=== PATIENT | male | born 1995 | race Caucasian/White ===

== ENCOUNTER 2017-04-17 14:31 | Inpatient (IN) ==
[2017-04-17] MEDS ORDERED: *HR* FentaNYL (PF) 100 MCG/2 ML VIAL IVP ONE (15:03)
[2017-04-17] MEDS ORDERED: *HR* Etomidate 20 MG/10 ML AMPUL IVP ONE (15:03)
[2017-04-17] MEDS ORDERED: 0.9 % Sodium Chloride 1,000 ML ONE (15:09)
--- NOTE | 2017-04-17 15:55 | Emergency Department Note ---
START Narrative - START START: I examined this patient and my medical decision-making was reviewed with the Resident Physician. I agree with the documented findings, disposition and treatment plan as described except to the extent set forth below. 21-year-old male presents emergency room for left sided spontaneous pneumothorax. Patient was sent from urgent care. Happened yesterday at 3 AM while at work at [employer]. Denies trauma. States he was just doing his normal activity when all of a sudden he developed left-sided chest pain. At the urgent care they did a plain film chest x-ray which showed a large pneumothorax with a slight shift of the trachea. Patient presents RER with this. We did a procedural sedation and placed a left sided chest tube successfully. This is done by the resident under my supervision. Patient is doing well. Follow-up chest x-ray showed good aeration of the left lung now. Patient will need to be admitted. Critical care time spent was 35 minutes including medical management of this left sided pneumothorax.
--- NOTE | 2017-04-17 16:05 | Emergency Department Note ---
Disposition Clinical Impression: Pneumothorax on left, Spontaneous pneumothorax, Pleuritic chest pain Disposition: Admitted As Inpatient Condition: Fair Time of Disposition: 23:20 SOB HPI - General Chief Complaint: ED Shortness of Breath/Dyspnea Stated Complaint: left sided pneumo Time Seen by Provider: 04/17/17 14:33 Source: patient Limitations: no limitations Nursing Notes Reviewed: Yes Vital Signs Reviewed: Yes - History of Present Illness 21-year-old male presents with diagnoses of pneumothorax left side 50% on a checks x-ray at urgent care. Patient states his symptoms started yesterday morning with acute onset of left lower lung area pain with inspiration. Patient states he started coughing later on that evening as his pain worsen. Patient has a cochlear implant on the left side of his head - Related Data Home Medications Medication Instructions Recorded Confirmed Loratadine [Claritin] 10 mg PO DAILY PRN 04/17/17 04/17/17 Allergies Allergy/AdvReac Type Severity Reaction Status Date / Time No Known Allergies Allergy Verified 04/17/17 16:11 All systems ED: reviewed and negative except as stated. Review of Systems: As Per HPI Constitutional: Denies: fever, chills, weakness Eyes: Denies: vision change ENT ED: Denies: congestion Cardiovascular: Reports: chest pain. Denies: palpitations Respiratory: Reports: cough, dyspnea. Denies: wheezes Gastrointestinal: Denies: abdominal pain, nausea, vomiting, diarrhea Genitourinary: Denies: frequency Musculoskeletal: Reports: back pain. Denies: neck pain Integumentary: Denies: rash Neurological: Denies: headache Psychiatric: Denies: anxiety Endocrine: Denies: fatigue Past Medical History - Past Medical History Attestation: Yes The following information was validated with the patient. Source: patient Medical history: Reports: non-contributory Psychiatric history: Reports: no psych history - Social History Smoking Status: Never smoker Smokeless Tobacco Status: No Alcohol use: Reports: none Drug use: Reports: none Physical Exam Vital Signs Temperature 98 F 04/17/17 14:33 Pulse Rate 87 04/17/17 14:33 Respiratory Rate 18 04/17/17 14:33 Blood Pressure 136/83 04/17/17 14:33 O2 Sat by Pulse Oximetry 99 04/17/17 14:33 Temperature 98.6 F 04/17/17 19:22 Pulse Rate 71 04/17/17 19:22 Respiratory Rate 16 04/17/17 19:22 Blood Pressure 131/72 04/17/17 19:22 O2 Sat by Pulse Oximetry 100 04/17/17 19:22 Oxygen Delivery Oxygen Delivery [1545] Room Air Oxygen Delivery [1540] Room Air Oxygen Delivery [1535] Room Air Oxygen Delivery [1530] Room Air Oxygen Delivery [1525] Room Air Oxygen Delivery [1520] Room Air Oxygen Delivery Room Air Patient 21-year-old male who is alert and oriented 3 and in no acute distress. Patient has normal vital signs and is afebrile. Patient is sitting up and looks very well. No increase work of breathing. Patient does have discomfort when taking a deep breath. - General Limitations: no limitations General appearance: alert - Head Head exam: atraumatic, normocephalic, normal inspection - Eye Eye exam: Present: normal appearance, PERRL, EOMI - ENT ENT exam: normal exam, normal oropharynx, mucous membranes moist - Neck Neck exam: Present: normal inspection, full ROM, trachea midline - Chest Chest inspection: Present: normal inspection, symmetric chest wall rise - Respiratory Respiratory exam: Present: other (Decreased lung sounds on the left) - Cardiovascular Cardiovascular exam: Present: regular rate, normal rhythm, normal heart sounds Course Vital Signs Temperature 98 F 04/17/17 14:33 Pulse Rate 87 04/17/17 14:33 Respiratory Rate 18 04/17/17 14:33 Blood Pressure 136/83 04/17/17 14:33 O2 Sat by Pulse Oximetry 99 04/17/17 14:33 Temperature 98.6 F 04/17/17 19:22 Pulse Rate 71 04/17/17 19:22 Respiratory Rate 16 04/17/17 19:22 Blood Pressure 131/72 04/17/17 19:22 O2 Sat by Pulse Oximetry 100 04/17/17 19:22 Oxygen Delivery Oxygen Delivery [1545] Room Air Oxygen Delivery [1540] Room Air Oxygen Delivery [1535] Room Air Oxygen Delivery [1530] Room Air Oxygen Delivery [1525] Room Air Oxygen Delivery [1520] Room Air Oxygen Delivery Room Air Procedures - Chest Tube Chest Tube 1 Chest Tube Location: left Size of Tube (cm): 28 Chest Tube Prep: betadine prep, sterile drapes applied Local Anesthetic: lidocaine 1% Amount of Anesthesia Used (mL): 5 Incision Made With: #10 blade Post Procedure: sutured to skin, sterile dressing applied Tube Drainage: none Post Procedure CXR?: Yes Patient Tolerated Procedure: Yes Shortness of Breath/Dyspnea - [facility] Narrative Medical decision making narrative: Pneumothorax greater than 50% left chest. 28-Arabic chest tube placed just anterior to the midaxillary line at fifth intercostal space. Patient tolerated procedure well. Post chest x-ray shows tube in correct position with small rigid residual amount of air. Patient was appropriately managed with pain with fentanyl 100 g and is doing well. Patient was accepted for admission by Dr. Guidry hospitalist. - Lab Data Lab results reviewed: Yes I reviewed the patient's lab results. - Radiology Data Radiology results reviewed: Yes I reviewed the patient's radiology results. Chest X-Ray 04/17/17 15:45 IMPRESSION: Tiny residual left apical pneumothorax after thoracostomy tube placement. D/ / Jose Roberto Ross / Jose Roberto Ross Interpreting Provider: Jose Roberto Ross
[2017-04-17] MEDS ORDERED: ceFAZolin 1,000 MG in D5% in Water (Mini-Bag+) 100 ML IVPB ONE (16:15)
[2017-04-17] MEDS ORDERED: Naloxone 0.4 MG/ML INJ IVP PRN (17:25)
[2017-04-17] MEDS ORDERED: Acetaminophen 325 MG TABLET PO PRN (17:25)
[2017-04-17] MEDS ORDERED: Mag Hydrox/Al Hydrox/Simeth 30 ML UDC PO PRN (17:25)
[2017-04-17] MEDS ORDERED: Ondansetron 4 MG/2 ML VIAL IVP PRN (17:25)
[2017-04-17] MEDS ORDERED: Loratadine 10 MG TABLET PO PRN (17:26)
--- NOTE | 2017-04-17 18:15 | Internal Med History&Physical ---
Date of Encounter: 04/17/17 Time of Encounter: 17:50 Assessment and Plan (1) Spontaneous tension pneumothorax Current visit: Yes Status: Acute Pt presented to urgent care and ED with spontaneous PTX. There was some slight shift of trachea per ED note. Chest tube placed in ED Keep chest tube to suction Oxygen Pain control Consult to CTS for management. Repeat CXR in AM (2) Deaf Current visit: Yes Status: Chronic Has bilateral cochear implants. Qualifiers: Laterality: bilateral Qualified Code(s): H91.93 - Unspecified hearing loss , bilateral (3) DVT prophylaxis Current visit: Yes Status: Acute Internal Medicine - H&P: HPI Chief complaint: L chest pain Admitted From: Emergency Dept Plans for Post Hospital Care: Home History of present illness: Mr. Major is a 21 year old male with hx of bilateral cochlear implants presented to ED with spontaneous L PTX. Pt works for [employer] and was working during the day yesterday. He developed L side chest pain but continued to work. He went home and today had continued pain so did not go to work. He presented to urgent care and was found to have L PTX and sent to ED. In ED chest tube was placed and he was admitted. Pt denies prior hx of PTX. He is adopted and does not know his family hx. He is a nonsmoker. 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 Currently he is resting in bed. He says his pain is tolerable except when moving. No dyspnea. Girlfriend and her family are at bedside. Past Med Surg Social Fam HX - Past Medical History Source: patient Medical history: no medical history Psychiatric history: no psych history - Past Surgical History Surgical History: other (Bilateral cochlear implants) - Social History Smoking Status: Never smoker Smokeless Tobacco Status: No Alcohol use: none Drug use: none Occupational status: employed Current living situation: Home - Independent Activity Level: Independent ambulation Recent Out of Country Travel Within the Last 8 Weeks: No Exposure or Possible Exposure to Illness During Travel: No - Additional Family History Additional family history: Pt is adopted and does not know any of his biological family history. Internal Medicine - H&P: Meds Loratadine [Claritin] 10 mg PO DAILY PRN 04/17/17 [History] 3 Allergy/AdvReac Type Severity Reaction Status Date / Time No Known Allergies Allergy Verified 04/17/17 16:11 All Systems PM: A 10-system review of systems was performed and is negative for pertinent findings except as documented above in the HPI. - Constitutional Constitutional: fatigue, no malaise, no weight loss - EENT Eyes: no dry eye, no loss of vision Ears: decreased hearing Additional comments: Has bilateral cochlear implants Nose, mouth and throat: nasal congestion, nasal discharge, post-nasal drip, no dry mouth, no mouth pain Additional comments: Has seasonal allergies - Cardiovascular Cardiovascular ROS IM: chest pain, dyspnea, no lightheadedness, no palpitations - Respiratory Respiratory: dyspnea, dyspnea on exertion, pain on inspiration - Gastrointestinal Gastrointestinal: no constipation, no diarrhea, no hematemesis, no melena, no nausea - Genitourinary Genitourinary ROS male: no dysuria, no nocturia - Musculoskeletal Musculoskeletal ROS IM: no arthralgias, no joint swelling - Integumentary Integumentary IM: no erythema, no new lesions, no rash - Neurological Neurological ROS: no confusion, no dizziness, no numbness - Psychiatric Psychiatric: no abnormal sleep pattern, no hallucinations - Endocrine Endocrine IM: no excessive sweating, no flushing - Hematologic/Lymphatic Hematologic/Lymphatic: no easy bleeding - Allergic/Immunologic Allergic/Immunologic: no itchy eyes, no wheezing - Constitutional Vitals: Temp Pulse Resp BP Pulse Ox 98 F 83 16 145/85 100 04/17/17 14:33 04/17/17 17:01 04/17/17 17:01 04/17/17 17:01 04/17/17 17:01 General appearance: Present: mild distress, A&O X 3, pleasant, answers questions appropriately - Head Head exam: Present: atraumatic, normocephalic - Eye Eye exam: Present: EOMI, conjuntiva pink Pupils: Present: PERRL - ENT ENT exam: Present: mucous membranes moist Additional comments: Bilateral cochlear implants - Neck Neck exam general surgery: Absent: lymphadenopathy, thyromegaly - Respiratory Respiratory exam: Present: decreased breath sounds. Absent: rales, rhonchi, wheezes - Cardiovascular Cardiovascular exam: Present: RRR. Absent: systolic murmur, tachycardia - GI/Abdominal GI/Abdominal exam: Present: normal bowel sounds, soft. Absent: tenderness - Extremities Exam Extremities exam: Present: full ROM, warm. Absent: pedal edema, tenderness - Neurological Exam Neurological exam: Present: alert, oriented X3 Additional comments: Decreased hearing - Psychiatric Psychiatric exam: Present: normal affect, normal mood - Skin Skin exam: Present: warm. Absent: rash
[2017-04-17] MEDS: *HR* HYDROmorphone (PF) 1 MG/ML SYRINGE IVP PRN (18:47)
[2017-04-17] MEDS ORDERED: ceFAZolin 1,000 MG in Water for inj. (sterile) 10 ML IVP ONE (20:00)
[2017-04-17] MEDS ORDERED: *HR* Promethazine 25 MG/ML VIAL IVP PRN (20:18)
[2017-04-17] MEDS: *HR* OxyCODONE Immed Rel 5 MG TABLET PO PRN (20:50)
[2017-04-18] MEDS ORDERED: *HR* Heparin 5,000 UNIT/ML VIAL SQ SCH
[2017-04-18 05:04] LABS: Basophils % 0.2 %; Hematocrit 39.7 % (37.5-50.1); Hemoglobin 13.3 g/dL (12.9-16.9); Immature Granulocytes % 0.4 % (0-4); Lymphocytes # 0.7 K/mcL (0.6-4.6); Lymphocytes % 4.9 %; Mean Corpuscular HGB Conc 33.5 g/dL (31.6-35.5); Mean Corpuscular Hemoglobin 29.1 pg (28.0-33.3); Mean Corpuscular Volume 86.9 fL (83.0-100.0); Mean Platelet Volume 11.6 fL (9.4-12.4); Monocytes # 0.8 K/mcL (0.0-1.3); Monocytes % 5.8 %; Neutrophils # 12.4 K/mcL (1.6-8.9); Platelet Count 251 K/mcL (140-400); Red Blood Count 4.57 M/mcL (4.19-5.50); Red Cell Distribution Width 13.3 % (11.5-14.5); Segmented Neutrophils % 88.7 %
[2017-04-18 05:28] LABS: BUN/Creatinine Ratio 14 (6-26); Blood Urea Nitrogen 10 mg/dL (8-26); Calcium 9.2 mg/dL (8.6-10.8); Carbon Dioxide 25 mEq/L (19-29); Chloride 103 mEq/L (98-109); Glucose 105 mg/dL (70-99); Magnesium 1.6 mg/dL (1.7-2.2); Osmolality,Calculated 285 (280-300); Potassium 4.2 mEq/L (3.5-4.5); Sodium 138 mEq/L (136-145); eGFR For African Americans > 60 (> 60); eGFR For Non-African Americans > 60 (> 60)
--- NOTE | 2017-04-18 08:37 | Cardiothoracic Consult Note ---
Date of Encounter: 04/18/17 Time of Encounter: 08:26 Assessment and Plan (1) Spontaneous pneumothorax Current Visit: Yes Status: Acute The patient is a 21-year-old otherwise healthy man with an initial episode of a left spontaneous pneumothorax. The chest tube was inserted with near complete resolution of the pneumothorax. Currently the chest tube has no air leak and she remain on suction for at least 1-2 more days prior to being placed to waterseal. If the chest x-ray continues to show resolution of the pneumothorax on waterseal, the chest tube may be removed. The assessment and plan as outlined above was discussed with the patient and/or family members who expressed understanding and agreement. All questions were answered. - History of Present Illness Consult date: 04/17/17 Requesting physician: Neil Guidry Consult reason: Chest tube management Chief complaint: Left spontaneous pneumothorax History of present illness: Mr. Major is a 21 year old otherwise healthy man who experienced sudden onset of left-sided chest pain while at work. The patient had a previous episode of pain in January 2017; however, did not seek medical attention at that time. At that time he thought he had "pulled muscle". With this episode of pain the patient decided to be evaluated [facility] a chest x-ray showed a left pneumothorax. He underwent chest tube insertion in the emergency department with resolution of the pneumothorax. Past Med Surg Social Fam HX - Past Medical History Medical history: non-contributory Psychiatric history: no psych history - Past Surgical History Surgical History: other (Bilateral cochlear implants) - Social History Smoking Status: Never smoker Smokeless Tobacco Status: No Alcohol use: none Drug use: none Occupational status: employed Current living situation: Home - Independent Activity Level: Independent ambulation, Very active Recent Out of Country Travel Within the Last 8 Weeks: No Exposure or Possible Exposure to Illness During Travel: No Medications and Allergies Loratadine [Claritin] 10 mg PO DAILY PRN 04/17/17 [History] 3 Allergy/AdvReac Type Severity Reaction Status Date / Time No Known Allergies Allergy Verified 04/17/17 16:11 All Systems Review: A 10-system review of systems was performed and is negative for pertinent findings except as documented above in the HPI. Physical Examination Vital Signs, Last 4 Hours Temp Pulse Resp BP Pulse Ox 04/18/17 07:26 98.6 F 89 16 148/80 98 General: Conversant, No Apparent Distress HEENT: Atraumatic, Normocephaly, Trachea midline Cardiac: Reg Rate and Rhythm, Normal S1 and S2, No Murmur Lungs: Normal Breath Sounds, No Wheeze, Rales, Rhonchi Neuro: Alert and responsive, No focal deficits noted, Cranial nerves intact, Motor nerves intact, Sensory nerves intact Vascular: Normal capillary refill Abdomen: Soft, Non-tender Musculoskeletal: Other (Left chest tube in place and functioning properly.) Extremities: No Clubbing, No Cyanosis, No Edema, Normal Pulses Results 04/18/17 04:34 04/18/17 04:34 Lab Results, Last 24 hours 04/18/17 04/18/17 04:34 04:34 WBC 14.0 H Hgb 13.3 Hct 39.7 Plt Count 251 Sodium 138 Potassium 4.2 Chloride 103 Carbon Dioxide 25 BUN 10 Creatinine 0.74 Glucose 105 H Calcium 9.2 Magnesium 1.6 L - Imaging Chest Xray: image reviewed (Small left apical pneumothorax.) Consult Discharge Plan - Plan Referrals: NONE,PCP [Primary Care Provider] -
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
[2017-04-18] MEDS: *HR* HYDROmorphone (PF) 1 MG/ML SYRINGE IVP PRN ×3 (11:10→23:18)
[2017-04-18] MEDS: Fluticasone Propionate Nasal 50 MCG/SPRAY BOTTLE NS SCH (18:37)
[2017-04-18] MEDS: *HR* OxyCODONE Immed Rel 5 MG TABLET PO PRN (19:58)
[2017-04-19] MEDS: *HR* OxyCODONE Immed Rel 5 MG TABLET PO PRN ×3 (04:26→19:15)
[2017-04-19 05:30] LABS: Basophils % 0.4 %; Eosinophils # 0.2 K/mcL (0.0-0.6); Eosinophils % 2.5 %; Hematocrit 38.9 % (37.5-50.1); Hemoglobin 13.2 g/dL (12.9-16.9); Immature Granulocytes % 0.2 % (0-4); Lymphocytes # 1.6 K/mcL (0.6-4.6); Lymphocytes % 17.5 %; Mean Corpuscular HGB Conc 33.9 g/dL (31.6-35.5); Mean Corpuscular Hemoglobin 29.5 pg (28.0-33.3); Mean Platelet Volume 11.4 fL (9.4-12.4); Monocytes % 11.5 %; Platelet Count 239 K/mcL (140-400); Red Blood Count 4.47 M/mcL (4.19-5.50); Red Cell Distribution Width 13.3 % (11.5-14.5); Segmented Neutrophils % 67.9 %
[2017-04-19 05:44] LABS: Alanine Aminotransferase 10 Units/L (0-55); Albumin 3.7 g/dL (3.5-5.0); Albumin/Globulin Ratio 1.2 (1.1-2.2); Alkaline Phosphatase 74 Units/L (38-126); Aspartate Amino Transferase 14 Units/L (5-34); BUN/Creatinine Ratio 12 (6-26); Bilirubin,Total 0.7 mg/dL (0.2-1.2); Blood Urea Nitrogen 9 mg/dL (8-26); Calcium 9.2 mg/dL (8.6-10.8); Carbon Dioxide 28 mEq/L (19-29); Chloride 103 mEq/L (98-109); Globulin 3.2 g/dL (2.4-3.5); Glucose 103 mg/dL (70-99); Osmolality,Calculated 287 (280-300); Potassium 3.7 mEq/L (3.5-4.5); Sodium 139 mEq/L (136-145); Total Protein 6.9 g/dL (6.0-8.3); eGFR For African Americans > 60 (> 60); eGFR For Non-African Americans > 60 (> 60)
--- NOTE | 2017-04-19 08:04 | Cardiothoracic Progress Note ---
Date of Encounter: 04/19/17 Time of Encounter: 08:03 - Assessment and plan (1) Spontaneous pneumothorax Current Visit: Yes Status: Acute The patient is a 21-year-old otherwise healthy man with an initial episode of a left spontaneous pneumothorax. The chest tube was inserted with near complete resolution of the pneumothorax. Currently the chest tube has no air leak and she remain on suction for at least 1-2 more days prior to being placed to waterseal. If the chest x-ray continues to show resolution of the pneumothorax on waterseal, the chest tube may be removed. The assessment and plan as outlined above was discussed with the patient and/or family members who expressed understanding and agreement. All questions were answered. - Subjective Interval history: The patient is resting comfortably in his hospital bed. He has no complaints of shortness of breath Vital Signs, Last 4 Hours Temp Pulse Resp BP Pulse Ox 04/19/17 07:41 98.2 F 86 16 136/85 98 Oxgyen Flow Rate Oxygen Flow Rate (LPM) 2.5 Clinical Data, last 8 Hours Output, Urine Amount 0 Output, Urine Amount 0 - Physical Examination General: Conversant, No Apparent Distress Neck: No JVD, Normal carotid pulses Cardiac: Reg Rate and Rhythm, Normal S1 and S2, No Murmur Incision: No signs of infection, Dry/intact dressing Chest tubes: Minimal drainage, Other (No air leak.) Lungs: Normal Breath Sounds, No Wheeze, Rales, Rhonchi Neuro: Alert and responsive, No focal deficits noted Vascular: Normal capillary refill Extremities: No Clubbing, No Cyanosis, No Edema, Normal Pulses - Labs 04/19/17 05:04 04/19/17 05:04 Lab Results, Last 24 hours 04/19/17 04/19/17 05:04 05:04 WBC 8.9 Hgb 13.2 Hct 38.9 Plt Count 239 Sodium 139 Potassium 3.7 Chloride 103 Carbon Dioxide 28 BUN 9 Creatinine 0.76 Glucose 103 H Calcium 9.2 Total Bilirubin 0.7 AST 14 ALT 10 Alkaline Phosphatase 74 - Imaging Chest Xray: image reviewed (Left apical pneumothorax, unchanged.) - VTE Documentation of Mechanical Device: Intermittent pneumatic compression device Consult Discharge Plan - Plan Referrals: NONE,PCP [Primary Care Provider] -
[2017-04-19] MEDS: Fluticasone Propionate Nasal 50 MCG/SPRAY BOTTLE NS SCH (08:27)
--- NOTE | 2017-04-19 11:40 | Internal Med Progress Note ---
<Emmanuel Maguire - Last Filed: 04/19/17 12:51> Date of Encounter: 04/19/17 Time of Encounter: 11:38 - Assessment and plan (1) Pneumothorax on left Current Visit: Yes Status: Acute Assessment and plan: Patient had a spontaneous left-sided pneumothorax without any traumatic injury. - Currently large-bore chest tube and left chest, followed by cardiothoracic surgery - Given patient's history of requirements are bilateral cochlear implants, spontaneous left-sided pneumothorax and correlating clinical examination there is question if he has Marfan syndrome. Family history is unable to obtain as the patient was adopted and has no prior documentation. CT chest: Large bore left chest tube with persistent left pneumothorax without evidence for mediastinal shift. Echocardiogram demonstrated LVEF 65%, possible bicuspid aortic valve, normal aortic root. Plan: - Chest tube management by cardiothoracic surgery (2) Spontaneous tension pneumothorax Current Visit: Yes Status: Acute Assessment and plan: Plan as above. - Continue pain control (3) Deaf Current Visit: Yes Status: Chronic Assessment and plan: History of bilateral cochlear implants, right-sided is not working. Qualifiers: Laterality: bilateral Qualified Code(s): H91.93 - Unspecified hearing loss , bilateral (4) Bicuspid aortic valve Current Visit: Yes Status: Acute Assessment and plan: Echocardiogram has findings concerning for Bicuspid aortic valve - nonacute, patient asymptomatic. Plan: - Follow up with cardiology outpatient. (5) DVT prophylaxis Current Visit: Yes Status: Acute Assessment and plan: SCD, ambulation - Subjective Interval history: Mr. Major 21 yo male has been seen and evaluated patient bedside this morning. He says the pain is tolerable and he has no concerns. He is eating well. His mother is at bedside and as a group we discussed the findings of Bicuspid Aortic valve on his echocardiogram and that he should follow up with Cardiology outpatient and establish with a PCP. He was agreeable and understands the plan. - Constitutional Vitals: Temp Pulse Resp BP Pulse Ox 98.2 F 86 16 136/85 98 04/19/17 07:41 04/19/17 07:41 04/19/17 07:41 04/19/17 07:41 04/19/17 07:41 General appearance: Present: mild distress, A&O X 3, pleasant, answers questions appropriately - Head Head exam: Present: atraumatic, normocephalic - Eye Eye exam: Present: PERRL, conjuntiva pink, sclera anicteric Pupils: Present: PERRL - Neck Neck exam general surgery: Present: supple, trachea midline. Absent: lymphadenopathy - Respiratory Respiratory exam: Present: CTAB. Absent: accessory muscle use, rales, rhonchi, wheezes Additional comments: Large bore chest tube in left chest on suction. - Cardiovascular Cardiovascular exam: Present: RRR, +S1, +S2. Absent: diastolic murmur, gallop, rubs, systolic murmur - GI/Abdominal GI/Abdominal exam: Present: normal bowel sounds, soft, no peritoneal signs. Absent: distended, tenderness - Extremities Exam Extremities exam: Present: warm, radial pulses palpable and symmetrical. Absent : calf tenderness, cyanotic, pedal edema - Neurological Exam Neurological exam: Present: CN II-XII intact, oriented X3, no focal deficits. Absent: pronater drift, facial droop, speech deficit - Skin Skin exam: Present: dry, intact Internal Medicine: Result - Labs CBC & Chem 7: 04/19/17 05:04 04/19/17 05:04 Labs: Short CBC 04/19/17 Range/Units 05:04 WBC 8.9 (4.3-11.1) K/mcL Hgb 13.2 (12.9-16.9) g/dL Hct 38.9 (37.5-50.1) % Plt Count 239 (140-400) K/mcL Neutrophils # 6.0 (1.6-8.9) K/mcL BMP 04/19/17 05:04 Sodium 139 Potassium 3.7 Chloride 103 Carbon Dioxide 28 BUN 9 Creatinine 0.76 Glucose 103 H Calcium 9.2 Liver Function 04/19/17 Range/Units 05:04 Total Bilirubin 0.7 (0.2-1.2) mg/dL AST 14 (5-34) Units/L ALT 10 (0-55) Units/L Alkaline Phosphatase 74 (38-126) Units/L Albumin 3.7 (3.5-5.0) g/dL - Impressions Impressions Echocardiogram 04/18/17 09:03 Impressions: LVEF 65%. RV function appears normal in images provided. Aortic valve leaflet number is not fully appreciated but appears to be possibly bicuspid. No pulmonary hypertension. Normally sized aortic root and proximal ascending thoracic aorta. Left Ventricular Wall Motion: Rest Echo Findings The apex, apical inferior, mid inferior, basal inferior, apical anterior, mid anterior, basal anterior, apical septal, mid inferior septal, basal inferior septal, apical lateral, mid anterior lateral and basal anterior lateral munoz were not visualized. All other wall segments showed normal motion. Findings: Study Quality * Technically limited study - no apical window due to chest tube. ECG Findings * Normal sinus rhythm. Left Ventricle * LVEF 65%. * Normal LV chamber size, wall thickness and function. * Diastolic function assessment not performed. Right Ventricle * RV function appears normal in images provided. Left Atrium * Normal left atrial size in PLAX and subcostal views. Right Atrium * Normal right atrial size in PLAX and subcostal views. Aortic Valve * No aortic regurgitation. * Aortic valve leaflet number is not fully appreciated but appears to be possibly bicuspid (possible fusion of non and left cusps). * No aortic stenosis. Mitral Valve * Normal mitral valve structure. * No mitral regurgitation. * Doppler study incomplete. Tricuspid Valve * No tricuspid regurgitation. * Normal tricuspid valve structure. * Estimated RA pressure is 3 mmHg. * Estimated RVSP is 27 mmHg. * No pulmonary hypertension. Pulmonic Valve * Pulmonic valve is not well visualized. * No pulmonic stenosis. * No pulmonic regurgitation. Pulmonary Artery * Pulmonary artery not well visualized. Aorta * Normally sized aortic root. * Normal sized proximal ascending thoracic aorta. Pericardium * There is no pericardial effusion present. Interatrial Septum * No evidence of PFO by color Doppler. IVC * Normal IVC dimensions and inspiratory collapse. Chest X-Ray 04/19/17 06:00 IMPRESSION: Interval increase in size of a small left pneumothorax since the previous exam. D/ : / 04/19/2017 10:23:37 Td Mora MD / [email or web address] Interpreting Provider: Td Mora MD - VTE Documentation of Mechanical Device: Intermittent pneumatic compression device Consult Discharge Plan - Plan Referrals: NONE,PCP [Primary Care Provider] - <Neil Guidry - Last Filed: 04/19/17 16:38> Date of Encounter: 04/19/17 - Assessment and plan (1) Spontaneous tension pneumothorax Current Visit: Yes Status: Acute (2) Deaf Current Visit: Yes Status: Chronic Qualifiers: Laterality: bilateral Qualified Code(s): H91.93 - Unspecified hearing loss , bilateral (3) Marfan syndrome Current Visit: Yes Status: Suspected (4) DVT prophylaxis Current Visit: Yes Status: Acute - Constitutional Vitals: Temp Pulse Resp BP Pulse Ox 98.0 F 84 16 133/72 99 04/19/17 11:50 04/19/17 11:50 04/19/17 11:50 04/19/17 11:50 04/19/17 11:50 Internal Medicine: Result - Labs CBC & Chem 7: 04/19/17 05:04 04/19/17 05:04 Labs: Short CBC 04/19/17 Range/Units 05:04 WBC 8.9 (4.3-11.1) K/mcL Hgb 13.2 (12.9-16.9) g/dL Hct 38.9 (37.5-50.1) % Plt Count 239 (140-400) K/mcL Neutrophils # 6.0 (1.6-8.9) K/mcL BMP 04/19/17 05:04 Sodium 139 Potassium 3.7 Chloride 103 Carbon Dioxide 28 BUN 9 Creatinine 0.76 Glucose 103 H Calcium 9.2 Liver Function 04/19/17 Range/Units 05:04 Total Bilirubin 0.7 (0.2-1.2) mg/dL AST 14 (5-34) Units/L ALT 10 (0-55) Units/L Alkaline Phosphatase 74 (38-126) Units/L Albumin 3.7 (3.5-5.0) g/dL - Impressions Impressions Chest X-Ray 04/19/17 06:00 IMPRESSION: Interval increase in size of a small left pneumothorax since the previous exam. D/ /19/2017 10:23:37 Td Mora MD / [email or web address] Interpreting Provider: Td Mora MD - Attending Attestation I examined this patient and my medical decision-making was reviewed with the Resident Physician on 04/19/17. I agree with the documented findings, disposition and treatment plan as described except to the extent set forth below. Mr Major is currently admitted for acute spontaneous R PTX. He remains moderate to high risk due to potential for worsening respiratory status. Mr Major is feeling a little better today. Pain is tolerable. No fever or chills. Chest tube still to suction. Exam Alert. Comfortable Mucus membranes dry Heart reg Diminished breath sounds I/P 1. PTX Further diagnoses and plan as above.
[2017-04-20] MEDS: *HR* OxyCODONE Immed Rel 5 MG TABLET PO PRN ×2 (04:54→20:41)
[2017-04-20 05:21] LABS: Basophils # 0.1 K/mcL (0.0-0.2); Basophils % 0.7 %; Eosinophils # 0.4 K/mcL (0.0-0.6); Eosinophils % 5.6 %; Hematocrit 39.3 % (37.5-50.1); Hemoglobin 13.3 g/dL (12.9-16.9); Immature Granulocytes % 0.3 % (0-4); Lymphocytes # 1.3 K/mcL (0.6-4.6); Lymphocytes % 19.4 %; Mean Corpuscular HGB Conc 33.8 g/dL (31.6-35.5); Mean Corpuscular Hemoglobin 29.5 pg (28.0-33.3); Mean Corpuscular Volume 87.1 fL (83.0-100.0); Mean Platelet Volume 11.9 fL (9.4-12.4); Monocytes # 0.8 K/mcL (0.0-1.3); Monocytes % 12.4 %; Neutrophils # 4.2 K/mcL (1.6-8.9); Platelet Count 239 K/mcL (140-400); Red Blood Count 4.51 M/mcL (4.19-5.50); Segmented Neutrophils % 61.6 %
[2017-04-20 05:35] LABS: Alanine Aminotransferase 10 Units/L (0-55); Albumin 3.5 g/dL (3.5-5.0); Albumin/Globulin Ratio 1.1 (1.1-2.2); Alkaline Phosphatase 69 Units/L (38-126); Aspartate Amino Transferase 13 Units/L (5-34); BUN/Creatinine Ratio 14 (6-26); Blood Urea Nitrogen 11 mg/dL (8-26); Calcium 9.6 mg/dL (8.6-10.8); Carbon Dioxide 30 mEq/L (19-29); Chloride 102 mEq/L (98-109); Globulin 3.3 g/dL (2.4-3.5); Glucose 88 mg/dL (70-99); Osmolality,Calculated 289 (280-300); Potassium 3.6 mEq/L (3.5-4.5); Sodium 140 mEq/L (136-145); Total Protein 6.8 g/dL (6.0-8.3); eGFR For African Americans > 60 (> 60); eGFR For Non-African Americans > 60 (> 60)
--- NOTE | 2017-04-20 08:18 | Internal Med Progress Note ---
<Emmanuel Maguire - Last Filed: 04/20/17 17:03> Date of Encounter: 04/20/17 Time of Encounter: 08:16 - Assessment and plan (1) Pneumothorax on left Current Visit: Yes Status: Acute Assessment and plan: Patient had a spontaneous left-sided pneumothorax without any traumatic injury. - Currently large-bore chest tube and left chest, followed by cardiothoracic surgery - Given patient's history of requirements are bilateral cochlear implants, spontaneous left-sided pneumothorax and correlating clinical examination there is question if he has Marfan syndrome. Family history is unable to obtain as the patient was adopted and has no prior documentation. CT chest: Large bore left chest tube with persistent left pneumothorax without evidence for mediastinal shift. Echocardiogram demonstrated LVEF 65%, possible bicuspid aortic valve, normal aortic root. CXR 04/20: Minimal residual apical pneumo. He remains moderate to high risk due to potential for worsening respiratory status. Plan: - Chest tube management by cardiothoracic surgery Possible removal today or tomorrow. (2) Spontaneous tension pneumothorax Current Visit: Yes Status: Acute Assessment and plan: Plan as above. - Continue pain control (3) Deaf Current Visit: Yes Status: Chronic Assessment and plan: History of bilateral cochlear implants, right-sided is not working. 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 Qualifiers: Laterality: bilateral Qualified Code(s): H91.93 - Unspecified hearing loss , bilateral (4) Bicuspid aortic valve Current Visit: Yes Status: Acute Assessment and plan: Echocardiogram has findings concerning for Bicuspid aortic valve - nonacute, patient asymptomatic. Plan: - Follow up with cardiology outpatient. (5) DVT prophylaxis Current Visit: Yes Status: Acute Assessment and plan: SCD, ambulation - Subjective Interval history: Mr. Major 21 yo male has been seen and evaluated patient bedside this morning. He is resting comfortably, no complaints pain is controlled. Has no questions at this time he is looking forward to having this chest tube out when deemed appropriate. He is eating, drinking voiding appropriately. - Constitutional Vitals: Temp Pulse Resp BP Pulse Ox 97.5 F L 66 16 128/68 97 04/20/17 04:10 04/20/17 04:10 04/20/17 04:10 04/20/17 04:10 04/20/17 04:10 General appearance: Present: mild distress, A&O X 3, pleasant, answers questions appropriately - Head Head exam: Present: atraumatic, normocephalic - Eye Eye exam: Present: PERRL, conjuntiva pink, sclera anicteric Pupils: Present: PERRL - Neck Neck exam general surgery: Present: supple, trachea midline. Absent: lymphadenopathy - Respiratory Respiratory exam: Present: CTAB. Absent: accessory muscle use, rales, rhonchi, wheezes Additional comments: Large bore chest tube in left chest. No appreciated subcutaneous emphysema. - Cardiovascular Cardiovascular exam: Present: RRR, +S1, +S2. Absent: diastolic murmur, gallop, rubs, systolic murmur - GI/Abdominal GI/Abdominal exam: Present: normal bowel sounds, soft, no peritoneal signs. Absent: distended, tenderness - Extremities Exam Extremities exam: Present: warm, radial pulses palpable and symmetrical. Absent : calf tenderness, cyanotic, pedal edema - Neurological Exam Neurological exam: Present: CN II-XII intact, oriented X3, no focal deficits. Absent: pronater drift, facial droop, speech deficit - Skin Skin exam: Present: dry, intact Internal Medicine: Result - Labs CBC & Chem 7: 04/20/17 04:43 04/20/17 04:43 Labs: Short CBC 04/20/17 Range/Units 04:43 WBC 6.8 (4.3-11.1) K/mcL Hgb 13.3 (12.9-16.9) g/dL Hct 39.3 (37.5-50.1) % Plt Count 239 (140-400) K/mcL Neutrophils # 4.2 (1.6-8.9) K/mcL BMP 04/20/17 04:43 Sodium 140 Potassium 3.6 Chloride 102 Carbon Dioxide 30 H BUN 11 Creatinine 0.78 Glucose 88 Calcium 9.6 Liver Function 04/20/17 Range/Units 04:43 Total Bilirubin 1.0 (0.2-1.2) mg/dL AST 13 (5-34) Units/L ALT 10 (0-55) Units/L Alkaline Phosphatase 69 (38-126) Units/L Albumin 3.5 (3.5-5.0) g/dL - Impressions Impressions Chest X-Ray 04/19/17 06:00 IMPRESSION: Interval increase in size of a small left pneumothorax since the previous exam. D/ / 04/19/2017 10:23:37 Td Mora MD / [email or web address] Interpreting Provider: Td Mora MD Chest X-Ray 04/20/17 06:00 IMPRESSION: Minimal residual left apical pneumothorax. D/ / 04/20/2017 07:52:45 Reilly Larry MD / [email or web address] Interpreting Provider: Reilly Larry MD - VTE Documentation of Mechanical Device: Intermittent pneumatic compression device Consult Discharge Plan - Plan Referrals: NONE,PCP [Primary Care Provider] - <Neil Guidry - Last Filed: 04/20/17 17:36> Date of Encounter: 04/20/17 - Assessment and plan (1) Spontaneous tension pneumothorax Current Visit: Yes Status: Acute (2) Deaf Current Visit: Yes Status: Chronic Qualifiers: Laterality: bilateral Qualified Code(s): H91.93 - Unspecified hearing loss , bilateral (3) Marfan syndrome Current Visit: Yes Status: Suspected (4) DVT prophylaxis Current Visit: Yes Status: Acute - Constitutional Vitals: Temp Pulse Resp BP Pulse Ox 98.1 F 68 19 115/64 99 04/20/17 15:30 04/20/17 15:30 04/20/17 15:30 04/20/17 15:30 04/20/17 15:30 Internal Medicine: Result - Labs CBC & Chem 7: 04/20/17 04:43 04/20/17 04:43 Labs: Short CBC 04/20/17 Range/Units 04:43 WBC 6.8 (4.3-11.1) K/mcL Hgb 13.3 (12.9-16.9) g/dL Hct 39.3 (37.5-50.1) % Plt Count 239 (140-400) K/mcL Neutrophils # 4.2 (1.6-8.9) K/mcL BMP 04/20/17 04:43 Sodium 140 Potassium 3.6 Chloride 102 Carbon Dioxide 30 H BUN 11 Creatinine 0.78 Glucose 88 Calcium 9.6 Liver Function 04/20/17 Range/Units 04:43 Total Bilirubin 1.0 (0.2-1.2) mg/dL AST 13 (5-34) Units/L ALT 10 (0-55) Units/L Alkaline Phosphatase 69 (38-126) Units/L Albumin 3.5 (3.5-5.0) g/dL - Impressions Impressions Chest X-Ray 04/20/17 06:00 IMPRESSION: Minimal residual left apical pneumothorax. D/ / 04/20/2017 07:52:45 Reilly Larry MD / [email or web address] Interpreting Provider: Reilly Larry MD - Attending Attestation I examined this patient and my medical decision-making was reviewed with the Resident Physician on 04/20/17. I agree with the documented findings, disposition and treatment plan as described except to the extent set forth below. Mr Major is currently admitted for acute spontaneous PTX He remains moderate to high risk due to potential for worsening respiratory status. Mr Major is feeling OK. Pain is tolerable. No new issues. Exam Alert. Comfortable Mucus membranes dry Heart reg No wheeze Abd soft I/P 1. PTX -per CTS 2. 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
--- NOTE | 2017-04-20 08:24 | Cardiothoracic Progress Note ---
Date of Encounter: 04/20/17 Time of Encounter: 08:22 - Assessment and plan (1) Spontaneous pneumothorax Current Visit: Yes Status: Acute The patient is a 21-year-old otherwise healthy man with an initial episode of a left spontaneous pneumothorax. The chest tube was inserted with near complete resolution of the pneumothorax. Currently the chest tube has no air leak and could be placed on waterseal tomorrow. If the chest x-ray continues to show resolution of the pneumothorax on waterseal, the chest tube may be removed. The assessment and plan as outlined above was discussed with the patient and/or family members who expressed understanding and agreement. All questions were answered. - Subjective Interval history: The patient is resting comfortably in his hospital bed. He has no respiratory complaints. Oxgyen Flow Rate Oxygen Flow Rate (LPM) 3 Clinical Data, last 8 Hours Output, Urine Amount 0 Output, Urine Amount 0 Weight 04/18/17 04/19/17 04/20/17 23:59 23:59 23:59 Weight 63.5 kg - Physical Examination General: Conversant, No Apparent Distress Neck: No JVD, Normal carotid pulses Cardiac: Reg Rate and Rhythm, Normal S1 and S2, No Murmur Incision: No signs of infection, Dry/intact dressing Chest tubes: Minimal drainage, Other (No air leak.) Lungs: Normal Breath Sounds, No Wheeze, Rales, Rhonchi Neuro: Alert and responsive, No focal deficits noted Vascular: Normal capillary refill Extremities: No Clubbing, No Cyanosis, No Edema - Labs 04/20/17 04:43 04/20/17 04:43 Lab Results, Last 24 hours 04/20/17 04/20/17 04:43 04:43 WBC 6.8 Hgb 13.3 Hct 39.3 Plt Count 239 Sodium 140 Potassium 3.6 Chloride 102 Carbon Dioxide 30 H BUN 11 Creatinine 0.78 Glucose 88 Calcium 9.6 Total Bilirubin 1.0 AST 13 ALT 10 Alkaline Phosphatase 69 - Imaging Chest Xray: image reviewed (Decreased size of left apical pneumothorax.) - VTE Documentation of Mechanical Device: Intermittent pneumatic compression device Consult Discharge Plan - Plan Referrals: NONE,PCP [Primary Care Provider] -
[2017-04-20] MEDS: Fluticasone Propionate Nasal 50 MCG/SPRAY BOTTLE NS SCH (10:05)
--- NOTE | 2017-04-21 09:33 | Internal Med Progress Note ---
<So Luna - Last Filed: 04/21/17 15:10> Date of Encounter: 04/21/17 Time of Encounter: 09:30 - Assessment and plan (1) Pneumothorax on left Current Visit: Yes Status: Acute Assessment and plan: Patient had a spontaneous left-sided pneumothorax without any traumatic injury. - Currently large-bore chest tube and left chest, followed by cardiothoracic surgery - Given patient's history of requirements are bilateral cochlear implants, spontaneous left-sided pneumothorax and correlating clinical examination there is question if he has Marfan syndrome. Family history is unable to obtain as the patient was adopted and has no prior documentation. 04/18 CT chest: Large bore left chest tube with persistent left pneumothorax without evidence for mediastinal shift. Echocardiogram demonstrated LVEF 65%, possible bicuspid aortic valve, normal aortic root. CXR 04/20: Minimal residual apical pneumo. He remains moderate to high risk due to potential for worsening respiratory status. Plan: - Chest tube management by cardiothoracic surgery Possible removal tomorrow. (2) Spontaneous tension pneumothorax Current Visit: Yes Status: Acute Assessment and plan: Plan as above. - Continue pain control (3) Bicuspid aortic valve Current Visit: Yes Status: Acute Assessment and plan: Echocardiogram has findings concerning for Bicuspid aortic valve - nonacute, patient asymptomatic. Plan: - Follow up with cardiology outpatient. (4) Deaf Current Visit: Yes Status: Chronic Assessment and plan: History of bilateral cochlear implants, right-sided is not working. 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 Qualifiers: Laterality: bilateral Qualified Code(s): H91.93 - Unspecified hearing loss , bilateral - Subjective Interval history: Patient with no complaints this morning. He has mild pain at the site of his chest tube insertion. He states that he has not voided since admission, 5 days. He does not want medication to help with a bowel movement and states that he is not straining when he goes to the restroom. - Constitutional Vitals: Temp Pulse Resp BP Pulse Ox 97.6 F 69 16 118/74 97 04/21/17 07:51 04/21/17 07:51 04/21/17 07:51 04/21/17 07:51 04/21/17 07:51 General appearance: Present: A&O X 3, pleasant, answers questions appropriately - Head Head exam: Present: atraumatic, normocephalic - Eye Eye exam: Present: PERRL, conjuntiva pink, sclera anicteric Pupils: Present: PERRL - Neck Neck exam general surgery: Present: supple, trachea midline. Absent: lymphadenopathy - Respiratory Respiratory exam: Present: CTAB. Absent: accessory muscle use, rales, rhonchi, wheezes Additional comments: Large bore chest tube in left chest. - Cardiovascular Cardiovascular exam: Present: RRR, +S1, +S2. Absent: diastolic murmur, gallop, rubs, systolic murmur - GI/Abdominal GI/Abdominal exam: Present: normal bowel sounds, soft, no peritoneal signs. Absent: distended, tenderness - Extremities Exam Extremities exam: Present: warm. Absent: cyanotic, pedal edema, tenderness Additional comments: Dorsalis pedis pulses palpable and symmetric - Neurological Exam Neurological exam: Present: CN II-XII intact, no focal deficits. Absent: facial droop, speech deficit - Skin Skin exam: Present: dry, intact Internal Medicine: Result - Labs CBC & Chem 7: 04/20/17 04:43 04/20/17 04:43 - Impressions Impressions Chest X-Ray 04/19/17 06:00 IMPRESSION: Interval increase in size of a small left pneumothorax since the previous exam. D/ /19/2017 10:23:37 Td Mora MD / [email or web address] Interpreting Provider: Td Mora MD - VTE Documentation of Mechanical Device: Intermittent pneumatic compression device Consult Discharge Plan - Plan Referrals: NONE,PCP [Primary Care Provider] - <Neil Guidry - Last Filed: 04/21/17 15:28> Date of Encounter: 04/21/17 - Assessment and plan (1) Spontaneous tension pneumothorax Current Visit: Yes Status: Acute (2) Deaf Current Visit: Yes Status: Chronic Qualifiers: Laterality: bilateral Qualified Code(s): H91.93 - Unspecified hearing loss , bilateral (3) Marfan syndrome Current Visit: Yes Status: Suspected (4) DVT prophylaxis Current Visit: Yes Status: Acute - Constitutional Vitals: Temp Pulse Resp BP Pulse Ox 98.2 F 70 16 103/63 98 04/21/17 14:56 04/21/17 14:56 04/21/17 14:56 04/21/17 14:56 04/21/17 14:56 Internal Medicine: Result - Labs CBC & Chem 7: 04/20/17 04:43 04/20/17 04:43 - Impressions Impressions Chest X-Ray 04/19/17 06:00 IMPRESSION: Interval increase in size of a small left pneumothorax since the previous exam. D/ /19/2017 10:23:37 Td Mora MD / frank Interpreting Provider: Td Mora MD - Attending Attestation I examined this patient and my medical decision-making was reviewed with the Resident Physician on 04/21/17. I agree with the documented findings, disposition and treatment plan as described except to the extent set forth below. Mr Major is currently admitted for acute spontaneous L PTX. He remains moderate to high risk due to potential for worsening clinical and respiratory status. Mr Major is feeling OK. His pain is controlled at this time. CT to water seal today. No fever or chills. Exam Alert Comfortable Mucus membranes dry Heart reg No wheeze. I/P 1. L PTX 2. Deafness Further diagnoses and plan as above.
[2017-04-21] MEDS: Fluticasone Propionate Nasal 50 MCG/SPRAY BOTTLE NS SCH (10:06)
[2017-04-21] MEDS: *HR* OxyCODONE Immed Rel 5 MG TABLET PO PRN (14:19)
--- NOTE | 2017-04-21 14:40 | Cardiothoracic Progress Note ---
Date of Encounter: 04/21/17 Time of Encounter: 14:39 - Assessment and plan (1) Spontaneous pneumothorax Current Visit: Yes Status: Acute The assessment and plan as outlined above was discussed with the patient and/or family members who expressed understanding and agreement. All questions were answered. I took the chest tube off suction. We will check a chest x-ray tomorrow morning. - Subjective Interval history: The patient has no complaints. Oxgyen Flow Rate Oxygen Flow Rate (LPM) 2 Clinical Data, last 8 Hours Output, Chest Tube Drainage 0 Amount [Left Mid-Axillary Chest] Output, Urine Amount 0 Output, Urine Amount 0 Weight 04/19/17 04/20/17 04/21/17 23:59 23:59 23:59 Weight 63.5 kg 63.67 kg Lungs are clear to percussion and auscultation. Heart is in a regular rate and rhythm. His chest tube has minimal drainage and I do not see an air leak. - Labs 04/20/17 04:43 04/20/17 04:43 - VTE Documentation of Mechanical Device: Intermittent pneumatic compression device Consult Discharge Plan - Plan Referrals: NONE,PCP [Primary Care Provider] -
[2017-04-21] MEDS: MOM Conc 10 ML UD.LIQ PO PRN (21:06)
[2017-04-22] MEDS: *HR* OxyCODONE Immed Rel 5 MG TABLET PO PRN (02:57)
--- NOTE | 2017-04-22 07:32 | Cardiothoracic Progress Note ---
Date of Encounter: 04/22/17 Time of Encounter: 07:31 - Assessment and plan (1) Spontaneous pneumothorax Current Visit: Yes Status: Acute I will check a chest x-ray tomorrow. If this looks good, I'll remove the chest tube tomorrow. - Subjective Interval history: The patient complains of mild pain around his chest tube. Vital Signs, Last 4 Hours Temp Pulse Resp BP Pulse Ox 04/22/17 07:18 97.3 F L 66 16 133/78 98 04/22/17 04:27 98.0 F 66 17 112/63 98 Oxgyen Flow Rate Oxygen Flow Rate (LPM) 2 Clinical Data, last 8 Hours Output, Urine Amount 600 Weight 04/20/17 04/21/17 04/22/17 23:59 23:59 23:59 Weight 63.5 kg 63.67 kg Lungs are clear to percussion and auscultation. Heart is in a regular rate and rhythm. Chest tube drainage is minimal and there is no air leak. Chest x-ray reveals a trace left pneumothorax. - Labs 04/20/17 04:43 04/20/17 04:43 - VTE Documentation of Mechanical Device: Intermittent pneumatic compression device Consult Discharge Plan - Plan Referrals: NONE,PCP [Primary Care Provider] -
[2017-04-22] MEDS: Fluticasone Propionate Nasal 50 MCG/SPRAY BOTTLE NS SCH (08:15)
--- NOTE | 2017-04-22 12:56 | Internal Med Progress Note ---
Date of Encounter: 04/22/17 Time of Encounter: 12:50 - Assessment and plan (1) Pneumothorax on left Current Visit: Yes Status: Acute Assessment and plan: Cardiothoracic is following along with the patient is to chest tube on the left. Chest chest was likely to be removed tomorrow. Etiology of his pneumothorax is unclear there is questions regarding possible Marfan syndrome. He does not have a significant family history that were aware of given the fact that the patient is adopted. He has bicuspid aortic valve seen on echo. He does have features of Marfan as well. He remains hemodynamically stable. He is not requiring any oxygen. (2) DVT prophylaxis Current Visit: Yes Status: Acute Assessment and plan: SCD, ambulation - Subjective Interval history: Patient was seen and examined. He has no complaints this morning. He says his breathing is significantly improved. He was seen by cardiothoracic. He has been afebrile. He has no chest pain. - Constitutional Vitals: Temp Pulse Resp BP Pulse Ox 98.1 F 92 16 155/84 98 04/22/17 10:42 04/22/17 10:42 04/22/17 10:42 04/22/17 10:42 04/22/17 10:42 General appearance: Present: A&O X 3, pleasant, answers questions appropriately Exam: GEN: NAD CVS: RRR. S1, S2, No m/r/g RESP: CTAB. Chest tube is noted on left ABD: Soft, NT, ND, +BS. EXT: No edema. 2+ DP NEURO: Nonfocal Internal Medicine: Result - Labs CBC & Chem 7: 04/20/17 04:43 04/20/17 04:43 - Impressions Impressions Chest X-Ray 04/22/17 00:01 IMPRESSION: Unchanged positioning of left-sided chest tube. Trace residual left apical pneumothorax. D/ / Virgilio Barboza MD / Virgilio Barboza MD Interpreting Provider: Virgilio Barboza MD - VTE Documentation of Mechanical Device: Intermittent pneumatic compression device Consult Discharge Plan - Plan Referrals: NONE,PCP [Primary Care Provider] -
[2017-04-23] MEDS: *HR* OxyCODONE Immed Rel 5 MG TABLET PO PRN (06:09)
[2017-04-23] MEDS: Fluticasone Propionate Nasal 50 MCG/SPRAY BOTTLE NS SCH (09:14)
--- NOTE | 2017-04-23 10:27 | Internal Med Progress Note ---
Date of Encounter: 04/23/17 Time of Encounter: 10:30 - Assessment and plan (1) Pneumothorax on left Current Visit: Yes Status: Acute Assessment and plan: Cardiothoracic is following along with the patient is to chest tube on the left. chest x-ray with slightly worse apical pneumothorax. Cardiothoracic is managing that. Patient is still hospitalized up until his chest tube is removed. Etiology of his pneumothorax is unclear there is questions regarding possible Marfan syndrome. He does not have a significant family history that were aware of given the fact that the patient is adopted. He has bicuspid aortic valve seen on echo. He does have features of Marfan as well. He remains hemodynamically stable. He is not requiring any oxygen. (2) DVT prophylaxis Current Visit: Yes Status: Acute Assessment and plan: SCD, ambulation - Subjective Interval history: Patient was seen and examined. He has no complaints this morning. His repeat chest x-ray shows slightly worsened apical pneumothorax. His breathing has not been an issue. He has been afebrile. He has no chest pain. - Constitutional Vitals: Temp Pulse Resp BP Pulse Ox 97.6 F 65 14 135/63 96 04/23/17 07:24 04/23/17 07:24 04/23/17 07:24 04/23/17 07:24 04/23/17 07:24 General appearance: Present: A&O X 3, pleasant, answers questions appropriately Exam: GEN: NAD CVS: RRR. S1, S2, No m/r/g RESP: CTAB. Chest tube is noted on left ABD: Soft, NT, ND, +BS. EXT: No edema. 2+ DP NEURO: Nonfocal Internal Medicine: Result - Labs CBC & Chem 7: 04/20/17 04:43 04/20/17 04:43 - Impressions Impressions Chest X-Ray 04/23/17 00:01 IMPRESSION: Unchanged positioning of left-sided chest tube. Slight increase in left apical pneumothorax. . D/ / Virgilio Barboza MD / Virgilio Barboza MD Interpreting Provider: Virgilio Barboza MD - VTE Documentation of Mechanical Device: Intermittent pneumatic compression device Consult Discharge Plan - Plan Referrals: NONE,PCP [Primary Care Provider] -
--- NOTE | 2017-04-23 10:42 | Cardiothoracic Progress Note ---
Date of Encounter: 04/23/17 Time of Encounter: 10:40 - Assessment and plan (1) Spontaneous pneumothorax Current Visit: Yes Status: Acute I will leave the chest tube in today. Hopefully, we can remove it in 1-2 days. - Subjective Interval history: The patient has been ambulating and has no complaints. Vital Signs, Last 4 Hours Temp Pulse Resp BP Pulse Ox 04/23/17 10:30 98.0 F 65 16 117/67 99 04/23/17 07:24 97.6 F 65 14 135/63 96 Oxgyen Flow Rate Oxygen Flow Rate (LPM) 2 Clinical Data, last 8 Hours Output, Urine Amount 0 Output, Urine Amount 0 Output, Urine Amount 0 Weight 04/21/17 04/22/17 04/23/17 23:59 23:59 23:59 Weight 63.67 kg 60.498 kg Lungs are clear to percussion and auscultation. Heart is in a regular rate and rhythm. O2 saturation is 100 on room air. Chest tube drainage is minimal and there is no air leak. Chest x-ray reveals a slight increase in the left pneumothorax. - Labs 04/20/17 04:43 04/20/17 04:43 - VTE Documentation of Mechanical Device: Intermittent pneumatic compression device Consult Discharge Plan - Plan Referrals: NONE,PCP [Primary Care Provider] -
[2017-04-23] MEDS: *HR* HYDROmorphone (PF) 1 MG/ML SYRINGE IVP PRN ×2 (18:34→23:33)
--- NOTE | 2017-04-24 09:33 | Cardiothoracic Progress Note ---
Date of Encounter: 04/24/17 Time of Encounter: 09:30 - Assessment and plan (1) Spontaneous pneumothorax Current Visit: Yes Status: Acute I discussed the situation with the patient and his mother by phone and offer them 3 options. We could continue to wait until the pneumothorax resolved, although this might take some time. We could remove the chest tube. However, there would be a small chance that the lung collapse would get worse and he would need a second chest tube. The third option is to place a Heimlich valve. Both the patient and his mother favor a Heimlich valve. I will place this. We will check a chest x-ray tomorrow morning. If this looks good, the patient can go home tomorrow. - Subjective Interval history: The patient complains of mild pain around his chest tube site. Vital Signs, Last 4 Hours Temp Pulse Resp BP Pulse Ox 04/24/17 07:25 97.5 F L 57 12 127/67 98 Oxgyen Flow Rate Oxygen Flow Rate (LPM) 2 Clinical Data, last 8 Hours Output, Chest Tube Drainage 146 Amount [Left Mid-Axillary Chest] Output, Chest Tube Drainage 146 Amount [Left Mid-Axillary Chest] Weight 04/22/17 04/23/17 04/24/17 23:59 23:59 23:59 Weight 60.498 kg 64.682 kg Lungs are clear to percussion and auscultation. Heart is in a normal sinus rhythm. His chest tube drainage is minimal and there is no air leak. Chest x- ray reveals a small, stable pneumothorax. - Labs 04/20/17 04:43 04/20/17 04:43 - VTE Documentation of Mechanical Device: Intermittent pneumatic compression device Consult Discharge Plan - Plan Referrals: NONE,PCP [Primary Care Provider] -
[2017-04-24] MEDS: Fluticasone Propionate Nasal 50 MCG/SPRAY BOTTLE NS SCH (09:49)
[2017-04-24] MEDS: *HR* OxyCODONE Immed Rel 5 MG TABLET PO PRN (09:50)
[2017-04-24] MEDS: *HR* HYDROmorphone (PF) 1 MG/ML SYRINGE IVP PRN ×2 (11:53→20:22)
[2017-04-24] MEDS: MOM Conc 10 ML UD.LIQ PO PRN (11:53)
--- NOTE | 2017-04-24 13:07 | Internal Med Progress Note ---
Date of Encounter: 04/24/17 Time of Encounter: 08:00 - Assessment and plan (1) Pneumothorax on left Current Visit: Yes Status: Acute Assessment and plan: Cardiothoracic is following along with the patient is to chest tube on the left. Cardiothoracic saw and plan on placing an Heimlich valve with possible discharge tomorrow. Chest x-ray in the morning. . (2) DVT prophylaxis Current Visit: Yes Status: Acute Assessment and plan: SCD, ambulation - Subjective Interval history: Patient was seen and examined. He has no complaints this morning. Continues to do okay. Seen by cardiothoracic. His breathing has not been an issue. He has been afebrile. He has no chest pain. - Constitutional Vitals: Temp Pulse Resp BP Pulse Ox 97.6 F 81 16 132/71 97 04/24/17 11:32 04/24/17 11:32 04/24/17 11:32 04/24/17 11:32 04/24/17 11:32 General appearance: Present: A&O X 3, pleasant, answers questions appropriately Exam: GEN: NAD CVS: RRR. S1, S2, No m/r/g RESP: CTAB. Chest tube is noted on left ABD: Soft, NT, ND, +BS. EXT: No edema. 2+ DP NEURO: Nonfocal Internal Medicine: Result - Labs CBC & Chem 7: 04/20/17 04:43 04/20/17 04:43 - Impressions Impressions Chest X-Ray 04/24/17 00:01 IMPRESSION: Stable examination demonstrating unchanged positioning of left-sided chest tube and small left apical pneumothorax. D/ / Virgilio Barboza MD / Virgilio Barboza MD Interpreting Provider: Virgilio Barboza MD - VTE Documentation of Mechanical Device: Intermittent pneumatic compression device Consult Discharge Plan - Plan Referrals: NONE,PCP [Primary Care Provider] -
[2017-04-25] MEDS: *HR* HYDROmorphone (PF) 1 MG/ML SYRINGE IVP PRN (07:23)
[2017-04-25] MEDS: Fluticasone Propionate Nasal 50 MCG/SPRAY BOTTLE NS SCH (07:26)
[2017-04-25 07:44] VITALS: BP 123/63
--- NOTE | 2017-04-25 08:39 | Cardiothoracic Progress Note ---
Date of Encounter: 04/25/17 Time of Encounter: 08:37 - Assessment and plan (1) Spontaneous pneumothorax Current Visit: Yes Status: Acute The patient is okay for discharge today from my standpoint. I will see him on May 15 and remove the Heimlich valve. He does request pain medication. A visiting nurse would be a good idea to check on his chest tube and Heimlich valve. The dressing around the chest tube can be changed when necessary with dry 4 x 4's. The 4 x 4 on the end of the Heimlich valve can be also changed when necessary. - Subjective Interval history: The patient has no complaints. Vital Signs, Last 4 Hours Temp Pulse Resp BP Pulse Ox 04/25/17 07:40 97.6 F 65 18 123/63 95 Oxgyen Flow Rate Oxygen Flow Rate (LPM) 2 Clinical Data, last 8 Hours Output, Urine Amount 600 Weight 04/23/17 04/24/17 04/25/17 23:59 23:59 23:59 Weight 60.498 kg 64.682 kg Lungs are clear to percussion and auscultation. Heart is in a regular rate and rhythm. Chest x-ray reveals a small pneumothorax that is improved. - Labs 04/20/17 04:43 04/20/17 04:43 - VTE Documentation of Mechanical Device: Intermittent pneumatic compression device Consult Discharge Plan - Plan Referrals: NONE,PCP [Primary Care Provider] -
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
--- NOTE | 2017-04-25 08:52 | Physician Discharge Referral ---
- Diagnosis (1) Pneumothorax on left Priority: Primary Status: Acute - Respiratory Orders Smoking Cessation: Smoking cessation has been advised. For more information, call the [place] Tobacco Quit Line at 7-004-JZIF-NOW. - Diet/Nutrition Diet/Nutrition Orders: Regular - Services Needed Following services are medically necessary services: Nursing - Transfer Medications Prescriptions: OxyCODONE Immed Rel [Roxicodone 5 MG] 5 mg PO Q6HR PRN #12 tablet PRN Reason: Moderate Pain (4-6) Home Medications: Loratadine [Claritin] 10 mg PO DAILY PRN 04/17/17 [History] OxyCODONE Immed Rel [Roxicodone 5 MG] 5 mg PO Q6HR PRN #12 tablet 04/25/17 [Rx] Allergies/Adverse Reactions: 3 Allergy/AdvReac Type Severity Reaction Status Date / Time No Known Allergies Allergy Verified 04/17/17 16:11 Certification: Further, I certify that my clinical findings support that this patient is homebound (i.e. absences from home require considerable and taxing effort and are for medical reasons or [employer] services or infrequently or short duration when for other reasons) because: Homebound Reason: Patient requires assistance of a person or device to safely leave home Attestation: My signature below is to certify that this patient is under my care and that I, or nurse practitioner, or a physician's assistant store manager trainee working with me, has a face-to -face encounter with this patient.
[2017-04-25] MEDS: *HR* OxyCODONE Immed Rel 5 MG TABLET PO PRN (11:46)
== END 2017-04-25 12:25 | disposition home or self-care (01) | DRG 143 ==
LOC: EMEROO 14:31 → 3ANU 14:31 → SUATTDRO 17:22 → 3ANU 17:30
PROVIDERS: ADMIT Internal Medicine; ATTEND Internal Medicine